=== PATIENT | female | born 2000 | race Two or more races ===

== ENCOUNTER 2020-12-02 15:19 | Emergency (ER) | payer BC ==
[~2020-12-02] VITALS: Ht 154.9 cm; Wt 53.1 kg
[2020-12-03] MEDS ORDERED: ZEBUTAL 50-3251 EACH PO (01:41)
== END 2020-12-03 02:09 | disposition home or self-care (01) ==
LOC: ER 15:19
DX: G43.809 Other migraine, not intractable, without status migrainosus (principal)

== ENCOUNTER 2022-01-23 08:11 | Emergency (ER) | payer BC ==
[~2022-01-23] VITALS: Ht 154.9 cm; Wt 52.2 kg
[~2022-01-23 08:11] MED LIST: ZEBUTAL 50-3251 EACH PO
[2022-01-23] MEDS ORDERED: SYNTHROID75 MCG (08:18)
== END 2022-01-23 14:10 | disposition home or self-care (01) ==
LOC: ER 08:11
DX: K52.9 Noninfective gastroenteritis and colitis, unspecified (principal)

== ENCOUNTER 2022-10-03 21:24 | Emergency (ER) | payer BC ==
[~2022-10-03] VITALS: Ht 154.9 cm; Wt 50.8 kg
[~2022-10-03 21:24] MED LIST changes: +SYNTHROID75 MCG
[2022-10-04] MEDS ORDERED: SYNTHROID88 MCG PO (00:32)
[2022-10-04] MEDS ORDERED: ZITHROMAX500 MG PO (03:20)
[2022-10-04] MEDS ORDERED: ZOFRAN8 MG PO (03:20)
== END 2022-10-04 04:14 | disposition home or self-care (01) ==
LOC: ER 21:24
DX: J03.90 Acute tonsillitis, unspecified (principal); Z88.6 Allergy status to analgesic agent; Z88.0 Allergy status to penicillin